=== PATIENT | female | born 1965 | race Caucasian/White ===

== ENCOUNTER 2020-08-04 13:10 | Emergency (ER) | payer BC, SELFPAY ==
[2020-08-04 13:12] VITALS: BP 148/97; PULSE 80; RESP 16; TEMP 36.1; O2SAT 98; BMI 35.4
--- NOTE | 2020-08-04 13:22 | ED.DCSUM_ITS ---
- ER Visit Summary Date of Service: 08/04/20 Chief Complaint: Right wrist injury History of Present Illness: The patient is a 54 F who presents with a right wrist injury. She was cleaning her bathroom and using her foot to mop up a wet spot when she lost her balance and fell backward. She landed on her ou tstretched hand. She has pain over the distal radius. Pain is worse with movement. She took nothing for it at home. No previous injuries or surgeries to this hand or wrist on the right-hand side. Physical Examination: Vital signs reviewed. Right wrist exam reveals tenderness over the distal radius. There is swelling in this area. She has decreased range of motion secondary to pain. She has a 2+ radial pulse. Hand and fingers are nontender. There is no elbow or shoulder tenderness. Test Results: X-ray of the right wrist reveals a comminuted fracture of the distal radius and a avulsion fracture of the ulnar styloid. Emergency Department Course and Treatment: He was given [place] for pain control. X-rays do reveal comminuted fracture of the distal radius and ulnar styloid fracture. Patient was placed in an AP Ortho-Glass splint by myself. Capillary refill and range of motion of the fingers was maintained after splint application. Patient will be placed on [place] for home. She requested [facility] so she will be given Dr. Bruce's follow-up information. Treatment Plan: [] Disposition: Discharge Impression: Right distal radius and ulna fracture, closed This note was generated with [employer] dictation software. It may contain incorrect words, spelling, and punctuation that were not noted in review of the chart prior to signing ED Disposition - Plan for ED Patient: Disposition: Home or Assisted Living Instructions: ED Fx Colles Wrist No Redu Requ Prescriptions: Hydrocodone Bitart/Apap 5-325 [[place] 5MG-325MG] 1 tablet PO Q6H PRN PRN 3 Days #10 tablet PRN Reason: Pain Transmission Status: Received by [facility]/pharmacy #[id number] Referrals: Lenny Rainey III, MD [Primary Care Provider] - Zhang Bruce DO [STAFF PHYSICIAN] -
--- NOTE | 2020-08-04 13:30 | RAD_ITS ---
STUDY: X-RAY - RIGHT WRIST REASON FOR EXAM: Female, 54 years old. FALL TECHNIQUE: 4 view(s) of the wrist were obtained. COMPARISON: None. FINDINGS: Nondisplaced comminuted fracture of the distal radial metaphysis. There is evidence of a dorsal facing. Avulsion fracture of the ulnar styloid. Normal distal radioulnar articulation. Normal carpal bones. Normal carpal articulations. Normal carpometacarpal articulation of the thumb. Normal second through fifth carpometacarpal articulations. Normal visualized metacarpal bones. Soft tissue swelling. RAD/Wrist min 3 Views IMPRESSION: Nondisplaced comminuted fracture of the distal radial metaphysis and avulsion fracture of the ulnar styloid. There is evidence of a dorsal facing of the radial carpal joint. Soft tissue swelling. Electronically Signed: Calixto Peng, at 14:04 EDT , Service support ,
[2020-08-04] MEDS: HYDROcodone Bitartrate/Apap 5/325 Tablet PO (13:37)
[2020-08-04 14:26] VITALS: BP 124/67; PULSE 59; RESP 14; O2SAT 98
== END 2020-08-04 14:27 | disposition home or self-care (01) ==
PROVIDERS: Emergency Provider Emergency Medicine; PCP Family Medicine
DX: S52.591A Other fractures of lower end of right radius, initial encounter for closed fracture (principal); S52.614A Nondisplaced fracture of right ulna styloid process, initial encounter for closed fracture; W01.0XXA Fall on same level from slipping, tripping and stumbling without subsequent striking against object, initial encounter; Y93.89 Activity, other specified; Y92.002 Bathroom of unspecified non-institutional (private) residence as the place of occurrence of the external cause; Y99.9 Unspecified external cause status
CPT/HCPCS: 29105; 73110; 99283

== ENCOUNTER 2020-10-25 09:30 | Outpatient (RCR) | payer BC, SELFPAY ==
--- NOTE | 2020-09-28 09:11 | HP.OTEVAL_ITS ---
Patient's Visit Information DEMI ORTEZ is a 55 year old F, referred to Occupational Therapy by Dr. Timothy Henley MD, with a diagnosis of right wrist fx of right lower end radius/ r ulna styloid dis fx. Date of Evaluation: 09/28/20 Occupational Therapist: Dory Villalobos, DENEEN/Paco, CHT - Subjective This 55 year old female was seen for OT eval with dx of right wrist fx. pt states she had a fall in 08/04/20 in bathroom while cleaning. pt did go to ER. Pt was splinted and pt went to Dr. henley and had sx 08/09/20. 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 pt states she is not back to work at this time. pt states she will retun about Nov.01. pt is right handed and is concerned as she has limited motion and pain with daily tasks. pt would like to return to her PLOF. 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 right wrist [address] 5 UD 10 - Strength Focused Factory Manager: right 10# left 55# Lateral Pinch: right 4# left 10# Tripod Pinch: right 2# left 6# Strength Comments: pt demo with weakness in left senior strategy analyst/pinch compared to unaffected hand - Edema Wrist: right 18cm left 16.5 PIP: right MF 6.7 left 6.2 - Sensation Sensation Comments: pt denies sensation changes, but reports a burning sensation inside her arm - Quick DASH-Disab of Arm,Shoulder& Hand Quick DASH Score: 70.0000 - Goals Goal:: PT will demo an increase in senior strategy analyst strength by 40# to increase independent with basic occupations of daily living to return pt to PLOF by D/C. Pt will demo an increase in lateral and tripod pinch by 4# to increase pts independent with opening baggies, containers at PLOF by D/C. Goal:: Pt will demo an increase in forearm supination by 60* or greater to increase pts ind. With ADls and IADLS by d/c. pt will demo a increase in wrist flex by 30* and ext by 30* to increase pts functional with ADLS and IADLS Goal:: Pt will report pain no greater than 1/10 with use of affected hand with BADLs and IADLs by d/c. Goal:: Pt will demo understanding of edema control techniques by end of 2nd session and perform recommendations to control edema. Goal:: Pt will demo understanding of scar mtg. by end of 2nd session to increase tissue extensibility to limit scar adhesions and allow full tendons function by d/c. Pt will demo a decrease is scar sensitivity to tolerate wearing long sleeve shirts by D/c. - Rehabilitation General Assessment: Pt is at 7 weeks/ s/p ORIF right wrist. pt demo with a decline in wrist ROM, forearm sup/pron, pain and weakness limiting pts ind. with ADLs and IADLs at this time. pt would benefit from skilled OT services 2x week for 8 weeks to return pt to pLOF. Rehabilitation Potential: Good - Anticipated Interventions A/AAROM/PROM, Strengthening, Edema Control, Scar Care, Modalities, Orthoses, Joint Protection/Energy Conservation, Ergonomic Education - Visit Plan Frequency: 2x /Week Duration: 2 Months General Plan: therapist ed pt on scar mtg- instructed pt in PROM of wrist flex/ext, RD UD and forearm sup/pron along with tendon glides- pt completed ex x 6 holding for 6-8 sec. pt demo understanding- will continue to progress pt as maria antonia and once we can initiate strengthening will progress pt as maria antonia. TEXT: Thank you for the opportunity to evaluate your patient. For Medicare and Medicare HMO plans, please review the plan of care and approve it. It will need to be FAXED BACK to us at [phone] for Medicare purposes. Please let me know if there are questions or concerns regarding this plan of care. Physician Signature: Date:
--- NOTE | 2020-10-26 09:57 | HP.OTDCSUM ---
It has been my pleasure to treat DEMI ORTEZ under orders from Dr. Timothy Henley MD, for the diagnosis of right wrist fx of right lower end radius/ r ulna styloid dis fx for a total of 6 visit(s). Please see the following information for a summary of their discharge status. 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 R Lat pinch 5# (4#). R Tripod 2# (2#) Patient Goals: Regain Mobility, Regain Strength, Decrease Pain, Use Hand/Wrist/Arm Normally Again, Be More Independent in ADLS Goal:: PT will demo an increase in collection systems technician strength by 40# to increase independent with basic occupations of daily living to return pt to PLOF by D/C. Pt will demo an increase in lateral and tripod pinch by 4# to increase pts independent with opening baggies, containers at PLOF by D/C. Goal:: Pt will demo an increase in forearm supination by 60* or greater to increase pts ind. With ADls and IADLS by d/c. pt will demo a increase in wrist flex by 30* and ext by 30* to increase pts functional with ADLS and IADLS Goal:: Pt will report pain no greater than 1/10 with use of affected hand with BADLs and IADLs by d/c. Goal:: Pt will demo understanding of edema control techniques by end of 2nd session and perform recommendations to control edema. Goal:: Pt will demo understanding of scar mtg. by end of 2nd session to increase tissue extensibility to limit scar adhesions and allow full tendons function by d/c. Pt will demo a decrease is scar sensitivity to tolerate wearing long sleeve shirts by D/c. Plan: Pt would like discharged, returning to work Nov.02 , cancel remaining appts. Discharge Comments: pt has met OT goals and reports ind. with ADls and IADLS. Pt will return to work on and feels she can perform her job without difficulty- pt did states with pt tsf she would get help with more challenging tsf. pt doing well and is D/C to cont with her HEP of PRE. If there are questions or concerns regarding this patient's occupational therapy, please fell free to call me at [phone]. Thank you for the referral of this patient. Sincerely, Dory Villalobos, SHELLEYR/Paco, CHT
--- NOTE | 2020-10-26 10:01 | HP.OTDCSUM ---
It has been my pleasure to treat DEMI ORTEZ under orders from Dr. Timothy Henley MD, for the diagnosis of right wrist fx of right lower end radius/ r ulna styloid dis fx for a total of 6 visit(s). Please see the following information for a summary of their discharge status. % Improvement: 80 Objective/Function: R wrist 58/60. Licensed Midwife 36#. Lat pinch 6#. Tri pinch 5#. pt is making gains with her strength and motion- therapy has challenged pt with simulated work tasks and pt did well- pt reports ind. with all her ADls and IADLS at this time. 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 Pt will demo an increase in lateral and tripod pinch by 4# to increase pts independent with opening baggies, containers at PLOF by D/C. Goal:: Pt will demo an increase in forearm supination by 60* or greater to increase pts ind. With ADls and IADLS by d/c. pt will demo a increase in wrist flex by 30* and ext by 30* to increase pts functional with ADLS and IADLS Goal:: Pt will report pain no greater than 1/10 with use of affected hand with BADLs and IADLs by d/c. Goal:: Pt will demo understanding of edema control techniques by end of 2nd session and perform recommendations to control edema. Goal:: Pt will demo understanding of scar mtg. by end of 2nd session to increase tissue extensibility to limit scar adhesions and allow full tendons function by d/c. Pt will demo a decrease is scar sensitivity to tolerate wearing long sleeve shirts by D/c. Plan: Pt would like discharged, returning to work Nov.02 , cancel remaining appts. Discharge Comments: pt has met OT goals and reports ind. with ADls and IADLS. Pt will return to work on and feels she can perform her job without difficulty- pt did states with pt tsf she would get help with more challenging tsf. pt doing well and is D/C to cont with her HEP of PRE. If there are questions or concerns regarding this patient's occupational therapy, please fell free to call me at [phone]. Thank you for the referral of this patient. Sincerely, Dory Villalobos, OTR/L, CHT
== END 2020-10-25 19:00 | disposition home or self-care (01) ==
LOC: OT 09:30
PROVIDERS: PCP Family Medicine; Referring Provider Specialist; Visit Provider Specialist
DX: S52.591D Other fractures of lower end of right radius, subsequent encounter for closed fracture with routine healing (principal); S52.611D Displaced fracture of right ulna styloid process, subsequent encounter for closed fracture with routine healing
CPT/HCPCS: 97110; 97140; 97166; 97167; 97530

== ENCOUNTER 2022-02-09 08:47 | Outpatient (CLI) | payer OTHER, SELFPAY ==
--- NOTE | 2022-02-09 08:50 | BD_ITS ---
STUDY: DUAL ENERGY X-RAY ABSORPTIOMETRY / DXA REASON FOR EXAM: Female, 56 years old. M85.89. The patient is postmenopausal. TECHNIQUE: Bone Mineral Density (BMD) measurements of lumbar spine and bilateral hips were obtained. COMPARISON: None. FINDINGS: Lumbar Spine (L1-L4): g/cm2 (1.055) / T-score (0.3) / Z-score (1.3) Findings are suggestive of normal bone density with a low fracture risk. Left Femur Total: g/cm2 (1.017) / T-score (0.6) / Z-score (1.3) Left Femoral Neck: g/cm2 (0.804) / T-score (-0.4) / Z-score (0.6) Right Femur Total: g/cm2 (0.980) / T-score (0.3) / Z-score (1.0) Right Femoral Neck: g/cm2 (0.797) / T-score (-0.5) / Z-score (0.6) BD/Dexa Bone Density Study IMPRESSION: The patient is considered normal as outlined below according to World Mata Organization (WHO) criteria with a low fracture risk. Reference Information: The T-score is the number of standard deviations above or below the standard which is normal for young adults at their peak bone mineral density. The World Health Organization (WHO) interprets the T-scores as follows: Above -1 Normal bone density Between -1 and -2.5 Osteopenia Equal to / or below -2.5 Osteoporosis As a practical clinical guideline, osteopenia may be graded as follows: Mild -1 through -1.5 Moderate -1.6 through -2.0 Severe -2.1 through -2.4 The Z-score is the number of standard deviations above or below age-matched controls. A Z-score of less than -1.5 would be considered abnormal. References: 1. NIH Osteoporosis and Related Bone Diseases www osteo.org 2. International Society for Clinical Densitometry www iscd.org 3. National Osteoporosis Foundation www nof.org Electronically Signed: Calixto Peng MD at 13:53 EDT ,
== END 2022-02-09 23:59 | disposition home or self-care (01) ==
LOC: OPBD 08:48
PROVIDERS: PCP Family Medicine; Visit Provider Student in an Organized Health Care Education/Training Program
DX: M85.89 Other specified disorders of bone density and structure, multiple sites (principal); Z78.0 Asymptomatic menopausal state
CPT/HCPCS: 77080